=== PATIENT | female | born 1985 | race Caucasian/White ===

== ENCOUNTER → 2020-12-15 | Day surgery (SDC) | payer OTHER ==
[~2020-12-15] MED LIST: CELEXA40 MG PO; CLONAZEPAM1 MG PO; HYOSCYAMINE SULFATE 0.5 MG/ML INJ ONE; IBUPROFEN200 MG PO; LIDOCAINE HCL 2% LOCAL INJ 5 ML SDV VIAL INJ ONE; METHIMAZOLE5 MG PO; MIDAZOLAM HCL 2 MG/2 ML VIAL ONE; MYLANTA PO; NORINYL PO; NORTREL1 EAC1 PO; PEPCID20 MG PO; PROPOFOL IV EMULSION 10 MG/ML 20 ML VIAL ONE; SEASONIQUE 0.11 EACH PO; WELLBUTRIN SR150 MG PO; XANAX1 MG PO; ZOFRAN PO
[2020-12-15 11:40] VITALS: BP 127/99
== END | disposition home or self-care (01) ==
LOC: OR 08:01
PROVIDERS: ATTEND Internal Medicine Gastroenterology
DX: K63.5 Polyp of colon (principal); K63.89 Other specified diseases of intestine; K59.09 Other constipation; K64.8 Other hemorrhoids; I10 Essential (primary) hypertension; F41.9 Anxiety disorder, unspecified; F32.9 Major depressive disorder, single episode, unspecified; Z01.812 Encounter for preprocedural laboratory examination; Z20.822 Contact with and (suspected) exposure to COVID-19; Z68.29 Body mass index [BMI] 29.0-29.9, adult; Z80.0 Family history of malignant neoplasm of digestive organs
CPT/HCPCS: 36415; 45380; 81025; 84443; J1980; J2001; J2250; J2704; U0002; 45378